=== PATIENT | male | born 1950 | race Caucasian/White ===

== ENCOUNTER 2018-07-07 08:57 | Outpatient (REF) | payer OTHER, SELFPAY ==
[2018-07-07 13:42] LABS: ALT 12 U/L (12-78); AST 20 U/L (15-37); Albumin 4.3 g/dL (3.4-5.0); Alkaline Phosphatase 63 U/L (46-116); Anion Gap 9.1 mmol/L (3-11); BUN 14 mg/dL (7-18); CO2 28.9 mmol/L (21.0-32.0); CREATININE 0.99 mg/dL (0.70-1.30); Chloride 104 mmol/L (98-107); Glucose 87 mg/dL (70-100); Sodium 142 mmol/L (136-145); TSH (W/Ref FT4) 3.53 uIU/mL (0.358-3.74); Total Protein 7.1 g/dL (6.4-8.2)
[2018-07-08 09:43] LABS: Hepatitis C Ab w Rflx HCV PCR Negative (NEGAT)
== END 2018-07-07 09:17 ==
LOC: NCHCN 08:57
PROVIDERS: PCP Internal Medicine; Visit Provider Nurse Practitioner Family
DX: E03.9 Hypothyroidism, unspecified (principal); E78.5 Hyperlipidemia, unspecified; I10 Essential (primary) hypertension; F10.10 Alcohol abuse, uncomplicated; Z00.00 Encounter for general adult medical examination without abnormal findings; F52.21 Male erectile disorder; Z11.59 Encounter for screening for other viral diseases
CPT/HCPCS: 80053; 86803; 84443

== ENCOUNTER 2019-09-01 09:27 | Outpatient (REF) | payer OTHER, SELFPAY ==
[2019-09-01 21:46] LABS: Calculated LDL 67 mg/dL (<100); Cholesterol 160 mg/dL (<200); HDL Cholesterol 79 mg/dL (40-60); TSH (W/Ref FT4) 2.59 uIU/mL (0.36-3.74); Triglyceride 70 mg/dL (<150)
== END 2019-09-01 09:47 ==
LOC: NCHCN 09:27
PROVIDERS: PCP Internal Medicine
DX: Z00.00 Encounter for general adult medical examination without abnormal findings (principal); E78.5 Hyperlipidemia, unspecified; E03.9 Hypothyroidism, unspecified
CPT/HCPCS: 80061; 84443

== ENCOUNTER 2020-09-07 14:57 | Outpatient (REF) | payer OTHER, SELFPAY ==
[2020-09-07 15:59] LABS: ALT 12 U/L (16-63); AST 17 U/L (15-37); Albumin 4.5 g/dL (3.4-5.0); Alkaline Phosphatase 67 U/L (46-116); Anion Gap 10.2 mmol/L (3-11); BUN 16 mg/dL (7-18); Bilirubin, Total 1.1 mg/dL (0.2-1.0); CO2 28.8 mmol/L (21.0-32.0); CREATININE 0.9 mg/dL (0.70-1.30); Calcium 9.1 mg/dL (8.5-10.1); Chloride 104 mmol/L (98-107); Glucose 91 mg/dL (74-106); Sodium 143 mmol/L (136-145); TSH (W/Ref FT4) 2.79 uIU/mL (0.36-3.74); Total Protein 7.3 g/dL (6.4-8.2)
== END 2020-09-07 14:58 | disposition home or self-care (01) ==
LOC: NCHCN 14:57
PROVIDERS: PCP Internal Medicine; Visit Provider Nurse Practitioner Family
DX: Z00.00 Encounter for general adult medical examination without abnormal findings (principal); E03.9 Hypothyroidism, unspecified; E78.5 Hyperlipidemia, unspecified; M19.049 Primary osteoarthritis, unspecified hand; I10 Essential (primary) hypertension; F10.10 Alcohol abuse, uncomplicated; M77.42 Metatarsalgia, left foot; Z86.010 Personal history of colon polyps
CPT/HCPCS: 80053; 84443

== ENCOUNTER 2021-12-20 21:24 | Outpatient (REF) | payer MEDICARE, SELFPAY ==
[2021-12-20 16:17] LABS: ALT 14 U/L (16-63); AST 21 U/L (15-37); Albumin 4.6 g/dL (3.4-5.0); Alkaline Phosphatase 73 U/L (46-116); Anion Gap 8.1 mmol/L (3-11); BUN 13 mg/dL (7-18); Bilirubin, Total 0.8 mg/dL (0.2-1.0); CO2 29.9 mmol/L (21.0-32.0); CREATININE 0.9 mg/dL (0.70-1.30); Calcium 9.4 mg/dL (8.5-10.1); Chloride 97 mmol/L (98-107); Estimated GFR 90.18 (mL/min/1.73m2); Glucose 102 mg/dL (74-106); Potassium 4.4 mmol/L (3.5-5.1); Sodium 135 mmol/L (136-145); Total Protein 7.7 g/dL (6.4-8.2)
== END 2021-12-20 21:25 | disposition home or self-care (01) ==
LOC: NCHCN 21:24
PROVIDERS: PCP Internal Medicine; Visit Provider Nurse Practitioner Family
DX: E03.9 Hypothyroidism, unspecified (principal); I10 Essential (primary) hypertension; E78.5 Hyperlipidemia, unspecified; F52.21 Male erectile disorder; M77.42 Metatarsalgia, left foot
CPT/HCPCS: 80053; 84443

== ENCOUNTER 2022-02-15 12:46 | Outpatient (REF) | payer MEDICARE, SELFPAY ==
[2022-02-15 14:42] LABS: Sodium 139 mmol/L (136-145)
== END 2022-02-15 12:47 | disposition home or self-care (01) ==
LOC: NCHCN 12:46
PROVIDERS: PCP Internal Medicine; Visit Provider Family Medicine
DX: E87.1 Hypo-osmolality and hyponatremia (principal)
CPT/HCPCS: 84295

== ENCOUNTER 2023-02-04 13:58 | Outpatient (REF) | payer MEDICARE, SELFPAY ==
[2023-02-04 16:27] LABS: Anion Gap 5.9 mmol/L (3-11); BUN 11 mg/dL (7-18); CO2 27.1 mmol/L (21.0-32.0); CREATININE 0.8 mg/dL (0.70-1.30); Calcium 9.2 mg/dL (8.5-10.1); Chloride 100 mmol/L (98-107); Estimated GFR 92.87 (mL/min/1.73m2); Glucose 94 mg/dL (74-106); Potassium 4.3 mmol/L (3.5-5.1); Sodium 133 mmol/L (136-145); TSH (W/Ref FT4) 2.06 uIU/mL (0.36-3.74)
== END 2023-02-04 13:59 | disposition home or self-care (01) ==
LOC: NCHCN 13:58
PROVIDERS: PCP Internal Medicine; Visit Provider Nurse Practitioner Family
DX: E03.9 Hypothyroidism, unspecified (principal); I10 Essential (primary) hypertension
CPT/HCPCS: 80048; 84443

== ENCOUNTER 2023-03-20 09:54 | Outpatient (REF) | payer MEDICARE, SELFPAY ==
[2023-03-20 15:44] LABS: Anion Gap 9.8 mmol/L (3-11); BUN 16 mg/dL (7-18); CO2 29.2 mmol/L (21.0-32.0); CREATININE 0.9 mg/dL (0.70-1.30); Calcium 9.6 mg/dL (8.5-10.1); Chloride 100 mmol/L (98-107); Estimated GFR 89.62 (mL/min/1.73m2); Glucose 94 mg/dL (74-106); Potassium 4.6 mmol/L (3.5-5.1); Sodium 139 mmol/L (136-145)
== END 2023-03-20 09:55 | disposition home or self-care (01) ==
LOC: NCHCN 09:54
PROVIDERS: PCP Internal Medicine; Visit Provider Nurse Practitioner Family
DX: E87.1 Hypo-osmolality and hyponatremia (principal); I10 Essential (primary) hypertension
CPT/HCPCS: 80048

== ENCOUNTER 2023-08-12 12:14 | Outpatient (REF) | payer MEDICARE, SELFPAY ==
[2023-08-12 15:15] LABS: TSH (W/Ref FT4) 2.54 uIU/mL (0.36-3.74)
== END 2023-08-12 12:15 | disposition home or self-care (01) ==
LOC: NCHCN 12:14
PROVIDERS: PCP Internal Medicine; Visit Provider Nurse Practitioner Family
DX: E03.9 Hypothyroidism, unspecified (principal)
CPT/HCPCS: 84443

== ENCOUNTER 2023-10-20 09:51 | Emergency (ER) | payer MEDICARE, SELFPAY ==
[2023-10-20] VITALS (52 sets, daily range): BP systolic 79–144; BP diastolic 49–78; PULSE 57–87; RESP 9–25; TEMP 36.6; O2SAT 96–97
--- NOTE | 2023-10-20 10:45 | RT.EKG_ITS ---
APPROVED REPORT Exam: Resting ECG Reason for Exam: Syncope Patient Location: E HR:58 bpm ECG Measurements Heart Rate 58 AXIS RI 218 P 73 QRSd 97 QRS -51 QT 422 T 36 QTc 415 Conclusion Sinus bradycardia. 58 normal axis no stemi
[2023-10-20 11:06] LABS: Abs Immature Grans 0.02 10^3/uL (0.0-0.06); Absolute Basophil Count 0.02 10^3/uL (0.0-0.2); Absolute Eosinophil Count 0.04 10^3/uL (0.0-0.7); Absolute Lymphocyte Count 0.73 10^3/uL (1.2-3.4); Absolute Monocyte Count 0.36 10^3/uL (0.1-0.8); Absolute Neutrophil Count 2.07 10^3/uL (1.2-6.7); Basophils % 0.6 %; Eosinophils % 1.2 %; HCT 37.7 % (40.0-50.0); HGB 13.8 g/dL (13.5-17.5); Immature Grans % 0.6 %; Lymphocytes % 22.5 %; MCH 33.5 pg (27.0-33.0); MCHC 36.6 % (32.0-36.0); MCV 92 fL (80-95); MPV 8.2 fL (8.0-11.0); Monocytes % 11.1 %; Platelet Count 174 10^3/uL (130-400); RBC 4.12 10^6/uL (4.36-5.78); WBC 3.24 10^3/uL (4.4-10.8)
[2023-10-20] MEDS: Lactated Ringers 1,000 ML 1000 ML IV ×2 (11:12→11:28)
[2023-10-20] MEDS: Folic Acid 1 MG TAB PO (11:14)
[2023-10-20] MEDS: Normal Saline 10 ML VIAL IJ (11:28)
[2023-10-20 11:32] LABS: ALT 15 U/L (16-63); AST 23 U/L (15-37); Albumin 4.1 g/dL (3.4-5.0); Alkaline Phosphatase 74 U/L (46-116); Anion Gap 13.6 mmol/L (3-11); BUN 11 mg/dL (7-18); Bilirubin, Total 0.95 mg/dL (0.2-1.0); CO2 23.4 mmol/L (21.0-32.0); CREATININE 0.8 mg/dL (0.70-1.30); Calcium 8.6 mg/dL (8.5-10.1); Chloride 90 mmol/L (98-107); ETHANOL BLOOD 215.3 mg/dL (<10); Estimated GFR 92.29 (mL/min/1.73m2); Glucose 125 mg/dL (74-106); Potassium 4.1 mmol/L (3.5-5.1); Sodium 127 mmol/L (136-145); TSH (W/Ref FT4) 2.51 uIU/mL (0.36-3.74)
[2023-10-20] MEDS: Thiamine 100 MG TAB PO (11:43)
--- NOTE | 2023-10-20 11:53 | W.ED.GENAD ---
Discharge Plan Disposition Patient Disposition: Home Discharge Details Clinical Impression: Acute hypotension, Acute dehydration, Vasovagal episode, Alcohol intoxication Primary Care Provider: Pa Nath ED Provider: Angeles Sandy Home Meds and New Rx's Prescriptions: No Action lisinopril 10 MG tablet 10 mg PO DAILY simvastatin 20 mg tablet 20 mg PO QPM Patient Comments: TAKE 1 TABLET BY MOUTH AT BEDTIME Discharge Instructions Instructions: Alcohol Intoxication ED Additional Instructions: Please increase your water intake and eat regular meals your alcohol level was very high this morning and this is the likely cause of your symptoms over the last several days. please avoid drinking to excess. HPI General Date/Time Provider Initiated Documentation: 10/20/23 10:06. Limitations to Documentation: altered mental status and physical limitation. Information obtained by: family (). HPI Narrative: 73-year-old gentleman with past medical history of alcohol abuse presents for evaluation of altered mental status. reports that he has been sober for the last 8 years. She reports that over the last 3 days he has had poor sleeping and noticed that he seems to be abnormal and not himself in the morning but this improves over the day. She was concerned about his level of confusion today and so she wanted to taken to the clinic, but they referred him to the emergency department. The reports that after making clinic arrangements, the patient did endorse to her that he has been drinking heavily at nighttime over the last 3 days to help him sleep. While waiting in the emergency department she reports that he became unresponsive and she could not get him to wake up and that he had urinary incontinence. She states that she did not notice any shaking or seizure activity and she has never noted that he has had seizures in the past. Related Data Home Medications ?Medication ?Instructions ?Recorded ?Confirmed lisinopril 10 mg tablet 10 mg PO DAILY 02/27/14 10/20/23 simvastatin 20 mg tablet 20 mg PO QPM 10/20/23 10/20/23 Allergies Allergy/AdvReac Type Severity Reaction Status Date / Time No Known Allergies Allergy Unverified 10/20/23 11:15 General Stated Complaint: AMS/LOC MALU: 3 Exam Narrative Exam Narrative: Review of Systems: All systems reviewed & are unremarkable except as noted in HPI and below Initially minimally responsive, covered in urine brought in from the waiting room in a wheelchair NCAT PERRL, normal conjunctiva Bradycardia no murmur Unlabored respiratory effort, clear bilaterally Nondistended abdomen Extremities w/o deformity, no cyanosis, no edema No rashes or lesions. Regained spontaneous alertness and able to answer questions and follow commands. Oriented to person and place. Moving all extremities equally well with good strength and no focal deficits Course Vital Signs Vital signs: Vital Signs Temperature 36.6 C 10/20/23 10:03 Pulse 67 10/20/23 10:03 Respiratory Rate 16 10/20/23 10:03 Blood Pressure 101/63 10/20/23 10:03 Pulse Oximetry 96 10/20/23 10:03 Temperature 36.6 C 10/20/23 10:03 Temperature Source Temporal Artery Scan 10/20/23 10:03 Pulse 66 10/20/23 11:31 Pulse 72 10/20/23 11:40 Respiratory Rate 16 10/20/23 11:40 Respiratory Effort Normal, Non-Labored 10/20/23 11:04 Respiratory Depth Normal 10/20/23 11:04 Respiratory Pattern Normal 10/20/23 11:04 Blood Pressure 115/71 10/20/23 11:31 Blood Pressure Mean 84 10/20/23 11:31 Blood Pressure Position Sitting 10/20/23 11:08 Pulse Oximetry 97 10/20/23 11:08 Oxygen Delivery Method Room Air 10/20/23 11:08 Oxygen Flow Rate 0 10/20/23 10:03 Pain Level 0 10/20/23 11:08 Lab/Test Results Lab/Test Results: Laboratory Tests Range/Units 10/20/23 10:55 WBC (4.4-10.8) 10^3/uL 3.24 L RBC (4.36-5.78) 10^6/uL 4.12 L Hgb (13.5-17.5) g/dL 13.8 Hct (40.0-50.0) % 37.7 L MCV (80-95) fL 92 MCH (27.0-33.0) pg 33.5 H MCHC (32.0-36.0) % 36.6 H RDW (11.8-14.1) % 12.0 Plt Count (130-400) 10^3/uL 174 MPV (8.0-11.0) fL 8.2 Immature Gran % % 0.6 Neutrophils % % 64.0 Lymphocytes % % 22.5 Monocytes % % 11.1 Eosinophils % % 1.2 Basophils % % 0.6 Nucleated RBC % (0.0-0.3) % 0.0 Absolute Neutrophils (1.2-6.7) 10^3/uL 2.07 Absolute Lymphocytes (1.2-3.4) 10^3/uL 0.73 L Absolute Monocytes (0.1-0.8) 10^3/uL 0.36 Absolute Eosinophils (0.0-0.7) 10^3/uL 0.04 Absolute Basophils (0.0-0.2) 10^3/uL 0.02 Sodium (136-145) mmol/L 127 L Potassium (3.5-5.1) mmol/L 4.1 Chloride (98-107) mmol/L 90 L Carbon Dioxide (21.0-32.0) mmol/L 23.4 Anion Gap (3-11) mmol/L 13.6 H BUN (7-18) mg/dL 11 Creatinine (0.70-1.30) mg/dL 0.8 Est GFR (CKD-EPI 2020) (mL/min/1.73m2) 92.29 Glucose (74-106) mg/dL 125 H Calcium (8.5-10.1) mg/dL 8.6 Magnesium (1.8-2.4) mg/dL 2.0 Total Bilirubin (0.2-1.0) mg/dL 0.95 AST (15-37) U/L 23 ALT (16-63) U/L 15 L Alkaline Phosphatase (46-116) U/L 74 Total Protein (6.4-8.2) g/dL 7.0 Albumin (3.4-5.0) g/dL 4.1 TSH (0.36-3.74) uIU/mL 2.51 Ethyl Alcohol (<10) mg/dL 215.3 H Medical Decision Making Emergent evaluation of altered mental status. Patient's provides most of the history and states that symptoms have been progressively worsening over the last 3 days. She has been attributing this to dehydration, alcohol abuse. Patient has been drinking heavily. He was waiting to be seen when he became unresponsive to his . And noted to have urinary incontinence. He was quickly brought back to the room. His mental status normalized and there was no postictal period. Although he has been heavily drinking, seems unlikely this was a alcohol withdrawal seizure or other type of seizure. Given his low blood pressure I suspect more of a vasovagal episode or possible syncope. Will continue telemetry monitoring, fluid resuscitation, lab work. EKG reviewed independently interpreted. Sinus bradycardia 58, no STEMI. 1320 patient's mental status continues to improve and he is requesting to eat sandwich. BP has improved with IV fluids. 1430 Patient has been monitored on telemetry and his blood pressure and heart rate have normalized. He is now maintaining his blood pressure. His repeat troponin is negative. I suspect that his vital sign abnormalities this morning were secondary to alcohol intoxication. The patient is stating that he feels fine and does want to go home. 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 Advised to not drink to excess, to follow-up with PCP as needed. Also recommend increasing oral hydration and eating regular meals. Patient safe for discharge in good condition. Medical Records Medical records reviewed: Yes I reviewed the patient's medical records. Lab Data Lab results reviewed: Yes I reviewed the patient's lab results. Quality:SDOH Health Related Social Needs: No Data to Display [facility] All Active Problems (Updated 10/20/23 @ 14:34 by Angeles Sandy MD) Alcohol intoxication (Acute) Vasovagal episode (Acute) Acute dehydration (Acute) Acute hypotension (Acute) Social History Smoking/Tobacco Use Status: Never Smoking risk assessment performed?: Yes Alcohol Intake: current Alcohol Intake frequency: other Alcohol type: hard liquor Drug use: Never Details: pt drinks only non-ETOH but consumed ETOH last night Housing: house Do you feel safe at home: Yes Do you feel safe in your relationship?: Yes Additional Social history: at side, very supportive PAWSS Have you Been Recently Intoxicated or Drunk Within the Last 30 days?: No Have you Ever Experienced Previous Episodes of Alcohol Withdrawal?: No Have you ever Experienced Withdrawal Seizures?: No Have you ever Experienced Delirium Tremens(DT)s?: No Have you ever undergone Alcohol Rehabilitation Treatment (i.e, inpt ot outpatient treatment programs)?: No Have you ever Experienced Blackouts?: No Have you ever Combined Alcohol with other Downers within the last 90 days?: No Have you ever Combined Alcohol with any other Substance of Abuse during the last 90 days?: No Positive Blood Alcohol level on Presentation? [PCS.BAL]: No Evidence of Increased Autonomic Activity (i.e. HR>120, tremor, sweating, agitation, nausea)?: No Result: 0
[2023-10-20 12:31] LABS: Troponin I < 50 ng/L (< or =60)
[2023-10-20 13:45] LABS: Bilirubin Negative (Negative); Blood Trace-intact (Negative); Clarity Clear (Clear); Glucose Negative (Negative); Ketones 15 mg/dL (Negative); Leukocyte Esterase Negative (Negative); Nitrite Negative (Negative); Specific Gravity 1.015 (1.005-1.025); pH 6.5 (5-8)
[2023-10-20 14:00] LABS: Bacteria Rare HPF (Negative); C & S Indicated? No; Casts Negative LPF (Negative); Crystals Negative HPF (Negative); Epithelial Cells Negative HPF (Negative); Mucus Negative (Negative); Other Cells Negative (Negative)
[2023-10-20 14:27] LABS: Troponin I < 50 ng/L (< or =60)
== END 2023-10-20 15:02 | disposition home or self-care (01) ==
PROVIDERS: Emergency Medicine; Emergency Provider Emergency Medicine; PCP Internal Medicine
DX: I95.9 Hypotension, unspecified (principal); E86.0 Dehydration; R55 Syncope and collapse; F10.120 Alcohol abuse with intoxication, uncomplicated; R00.1 Bradycardia, unspecified; Y90.7 Blood alcohol level of 200-239 mg/100 ml
CPT/HCPCS: 80053; 82962; 93005; 99284; 80320; 81003; 81015; 83735; 84443; 84484; 85025; 93010; 99283

== ENCOUNTER 2023-12-29 08:46 | Outpatient (REF) | payer MEDICARE, SELFPAY ==
[2023-12-29 15:53] LABS: Absolute Basophil Count 0.05 10^3/uL (0.0-0.2); Absolute Lymphocyte Count 0.76 10^3/uL (1.2-3.4); Absolute Monocyte Count 0.39 10^3/uL (0.1-0.8); Absolute Neutrophil Count 1.81 10^3/uL (1.2-6.7); Basophils % 1.6 %; Eosinophils % 3.2 %; HCT 41.4 % (40.0-50.0); HGB 14.2 g/dL (13.5-17.5); Lymphocytes % 24.4 %; MCH 33.3 pg (27.0-33.0); MCHC 34.3 % (32.0-36.0); MCV 97 fL (80-95); MPV 9.9 fL (8.0-11.0); Monocytes % 12.5 %; Neutrophils % 58.3 %; Platelet Count 184 10^3/uL (130-400); RBC 4.27 10^6/uL (4.36-5.78); RDW 11.9 % (11.8-14.1); RDW-SD 42.3 fL; WBC 3.11 10^3/uL (4.4-10.8)
[2023-12-29 16:27] LABS: ALT 11 U/L (16-63); AST 17 U/L (15-37); Albumin 4.2 g/dL (3.4-5.0); Alkaline Phosphatase 73 U/L (46-116); Anion Gap 8.9 mmol/L (3-11); BUN 12 mg/dL (7-18); Bilirubin, Total 1.17 mg/dL (0.2-1.0); CO2 29.1 mmol/L (21.0-32.0); CREATININE 0.9 mg/dL (0.70-1.30); Calcium 9.3 mg/dL (8.5-10.1); Calculated LDL 47 mg/dL (<100); Chloride 101 mmol/L (98-107); Cholesterol 145 mg/dL (<200); Estimated GFR 89.07 (mL/min/1.73m2); Folate 16.1 ng/mL (8.6-20.0); Glucose 88 mg/dL (74-106); HDL Cholesterol 78 mg/dL (40-60); Potassium 4.5 mmol/L (3.5-5.1); Sodium 139 mmol/L (136-145); Triglyceride 102 mg/dL (<150); Vitamin B12 289 pg/mL (193-986)
== END 2023-12-29 08:47 | disposition home or self-care (01) ==
LOC: NCHCN 08:46
PROVIDERS: PCP Internal Medicine; Visit Provider Nurse Practitioner Family
DX: I10 Essential (primary) hypertension (principal)
CPT/HCPCS: 80053; 80061; 82607; 82746; 85025

== ENCOUNTER 2024-02-03 14:07 | Outpatient (REF) | payer MEDICARE, SELFPAY ==
[2024-02-03 21:50] LABS: Abs Immature Grans 0.01 10^3/uL (0.0-0.06); Absolute Basophil Count 0.04 10^3/uL (0.0-0.2); Absolute Eosinophil Count 0.09 10^3/uL (0.0-0.7); Absolute Monocyte Count 0.47 10^3/uL (0.1-0.8); Absolute Neutrophil Count 4.33 10^3/uL (1.2-6.7); Basophils % 0.7 %; Eosinophils % 1.6 %; HCT 40.8 % (40.0-50.0); HGB 14.3 g/dL (13.5-17.5); Immature Grans % 0.2 %; Lymphocytes % 12.4 %; MCH 33.4 pg (27.0-33.0); MCV 95 fL (80-95); MPV 9.9 fL (8.0-11.0); Monocytes % 8.3 %; Neutrophils % 76.8 %; Platelet Count 202 10^3/uL (130-400); RBC 4.28 10^6/uL (4.36-5.78); RDW 11.7 % (11.8-14.1); RDW-SD 40.5 fL; WBC 5.64 10^3/uL (4.4-10.8)
[2024-02-03 22:10] LABS: ALT 15 U/L (16-63); AST 23 U/L (15-37); Albumin 4.5 g/dL (3.4-5.0); Alkaline Phosphatase 66 U/L (46-116); BUN 15 mg/dL (7-18); Bilirubin, Total 1.22 mg/dL (0.2-1.0); CREATININE 0.9 mg/dL (0.70-1.30); Calcium 9.4 mg/dL (8.5-10.1); Chloride 98 mmol/L (98-107); Estimated GFR 89.07 (mL/min/1.73m2); Glucose 79 mg/dL (74-106); Potassium 4.5 mmol/L (3.5-5.1); Sodium 136 mmol/L (136-145); Total Protein 7.3 g/dL (6.4-8.2)
== END 2024-02-03 14:08 | disposition home or self-care (01) ==
LOC: NCHCN 14:07
PROVIDERS: PCP Internal Medicine; Visit Provider Nurse Practitioner Family
DX: I10 Essential (primary) hypertension (principal)
CPT/HCPCS: 80053; 85025

== ENCOUNTER 2024-02-25 08:11 | Outpatient (REF) | payer MEDICARE, SELFPAY ==
[2024-02-25 14:36] LABS: Absolute Basophil Count 0.05 10^3/uL (0.0-0.2); Absolute Eosinophil Count 0.14 10^3/uL (0.0-0.7); Absolute Monocyte Count 0.44 10^3/uL (0.1-0.8); Absolute Neutrophil Count 2.45 10^3/uL (1.2-6.7); Basophils % 1.2 %; Eosinophils % 3.4 %; HCT 39.8 % (40.0-50.0); HGB 13.9 g/dL (13.5-17.5); Lymphocytes % 24.5 %; MCH 33.3 pg (27.0-33.0); MCHC 34.9 % (32.0-36.0); MCV 95 fL (80-95); MPV 9.5 fL (8.0-11.0); Monocytes % 10.8 %; Neutrophils % 60.1 %; Platelet Count 200 10^3/uL (130-400); RBC 4.18 10^6/uL (4.36-5.78); RDW 11.9 % (11.8-14.1); RDW-SD 41.3 fL; Reticulocyte 0.7 % (0.5-2.4); WBC 4.08 10^3/uL (4.4-10.8)
[2024-02-25 14:49] LABS: Iron 94 ug/dL (65-175); Total Iron Binding Capacity 280 ug/dL (250-450); Transferrin Sat 34 % (20-55)
[2024-02-25 14:58] LABS: Ferritin 382 ng/mL (26-388)
== END 2024-02-25 08:12 | disposition home or self-care (01) ==
LOC: NCHCN 08:11
PROVIDERS: PCP Nurse Practitioner Family; Visit Provider Nurse Practitioner Family
DX: D64.9 Anemia, unspecified (principal)
CPT/HCPCS: 82728; 83540; 83550; 85025; 85045

== ENCOUNTER 2024-08-16 15:53 | Outpatient (REF) | payer MEDICARE, SELFPAY ==
[2024-08-16 14:44] LABS: Abs Immature Grans 0.01 10^3/uL (0.0-0.06); Absolute Basophil Count 0.03 10^3/uL (0.0-0.2); Absolute Eosinophil Count 0.08 10^3/uL (0.0-0.7); Absolute Lymphocyte Count 0.54 10^3/uL (1.2-3.4); Absolute Monocyte Count 0.35 10^3/uL (0.1-0.8); Absolute Neutrophil Count 2.37 10^3/uL (1.2-6.7); Basophils % 0.9 %; Eosinophils % 2.4 %; HCT 40.4 % (40.0-50.0); Immature Grans % 0.3 %; MCH 32.7 pg (27.0-33.0); MCHC 34.7 % (32.0-36.0); MCV 94 fL (80-95); MPV 9.6 fL (8.0-11.0); Monocytes % 10.4 %; Platelet Count 191 10^3/uL (130-400); RBC 4.28 10^6/uL (4.36-5.78); RDW 12.4 % (11.8-14.1); WBC 3.38 10^3/uL (4.4-10.8)
[2024-08-16 15:00] LABS: ALT 12 U/L (16-63); AST 19 U/L (15-37); Albumin 4.3 g/dL (3.4-5.0); Alkaline Phosphatase 85 U/L (46-116); Anion Gap 8.6 mmol/L (3-11); BUN 15 mg/dL (7-18); Bilirubin, Total 0.9 mg/dL (0.2-1.0); CO2 27.4 mmol/L (21.0-32.0); CREATININE 0.8 mg/dL (0.70-1.30); Calcium 8.9 mg/dL (8.5-10.1); Chloride 100 mmol/L (98-107); Estimated GFR 92.29 (mL/min/1.73m2); Glucose 90 mg/dL (74-106); Potassium 4.5 mmol/L (3.5-5.1); Sodium 136 mmol/L (136-145)
== END 2024-08-16 15:54 | disposition home or self-care (01) ==
LOC: NCHCN 15:53
PROVIDERS: PCP Nurse Practitioner Family; Visit Provider Nurse Practitioner Family
DX: D64.9 Anemia, unspecified (principal)
CPT/HCPCS: 80053; 85025

== ENCOUNTER 2024-11-16 14:55 | Outpatient (REF) | payer MEDICARE, SELFPAY ==
[2024-11-16 16:15] LABS: TSH (W/Ref FT4) 3.17 uIU/mL (0.36-3.74)
== END 2024-11-16 14:56 | disposition home or self-care (01) ==
LOC: NCHCN 14:55
PROVIDERS: PCP Nurse Practitioner Family; Visit Provider Nurse Practitioner Family
DX: E03.9 Hypothyroidism, unspecified (principal)
CPT/HCPCS: 84443